=== PATIENT | male | born 1985 | race Caucasian/White ===

== ENCOUNTER 2021-03-24 18:34 | Inpatient (IN) | payer OTHER ==
[2021-03-24 21:10] VITALS: BMI 21.7
[2021-03-24] MEDS ORDERED: MAGNESIUM HYDROX 2400MG/30ML ORAL SUSPENSION 30 ML CUP PO PRN (21:58)
[2021-03-24] MEDS ORDERED: MAGNESIUM CITRATE 300 ML BOTTLE PO PRN (21:58)
[2021-03-24] MEDS ORDERED: MENTHOL/PHENOL 1 EACH UD MM PRN (21:58)
[2021-03-24] MEDS ORDERED: BISMUTH SUBSALICYLATE 524 MG/30 ML PO PRN (21:58)
[2021-03-24] MEDS ORDERED: ACETAMINOPHEN 325 MG TABLET (FP) PO PRN ×2 (21:58)
[2021-03-24] MEDS ORDERED: MAG HYDROX/AL HYDROX/SIMETH 30 ML UNIT-DOSE CUP PO PRN (21:58)
[2021-03-24] MEDS ORDERED: methaDONE HCL 10 MG TABLET (FOR DETOX USE ONLY) PO ONE (23:00)
[2021-03-25] MEDS: MELATONIN 5 MG TABLETS PO SCH ×2 (03:51→22:08)
[2021-03-25] MEDS: THIAMINE HCL 100 MG TABLET (FP) PO SCH ×2 (03:51→22:08)
[2021-03-25] MEDS ORDERED: methaDONE HCL 10 MG TABLET (FOR DETOX USE ONLY) ONE (09:07)
[2021-03-25] MEDS ORDERED: ONDANSETRON *ODT* 4 MG TABLET SL ONE (09:32)
[2021-03-25] MEDS ORDERED: METHOCARBAMOL 750 MG TAB PO ONE (10:00)
[2021-03-25 10:29] LABS: HEMATOCRIT 39.1 % (35.4-49); HEMOGLOBIN 13.6 GM/dL (11.7-16.9); MCH 31.8 pg (25.7-33.7); MCHC 34.8 g/dl (32.0-35.9); MEAN CELL VOLUME 91.2 fl (80-96); MEAN PLT VOLUME 7.2 fl (7.5-11.1); PLATELET COUNT 291 10^3/uL (134-434); RBC 4.29 M/mm3 (4.00-5.60); RDW 13.6 % (11.9-15.9); WHITE BLOOD COUNT 7.7 K/mm3 (4.0-10.0)
[2021-03-25 10:37] LABS: ALBUMIN 3.7 g/dl (3.4-5.0); BLOOD UREA NITROGEN 7.3 mg/dL (7-18); CALCIUM 8.5 mg/dL (8.5-10.1)
[2021-03-25] MEDS: PRENATAL VITAMINS W/ FOLIC ACID TABLET (FP) PO SCH (10:37)
[2021-03-25 10:40] LABS: CREATININE 0.5 mg/dL (0.55-1.3)
[2021-03-25 10:42] LABS: BILIRUBIN,TOTAL 0.6 mg/dL (0.2-1); TOT PROT 6.3 g/dl (6.4-8.2)
[2021-03-25 11:26] LABS: HIV INTERPRETATION NEGATIVE (NEGATIVE)
[2021-03-25] MEDS ORDERED: NICOTINE POLACRILEX 4 MG GUM BUC PRN (11:57)
[2021-03-25] MEDS: NICOTINE 21 MG/24 HOURS TOPICAL PATCH TD SCH (12:15)
[2021-03-25] MEDS: ONDANSETRON *ODT* 4 MG TABLET SL PRN (17:11)
[2021-03-25] MEDS: hydrOXYzine PAMOATE 25 MG CAPSULE (FP) PO PRN ×2 (17:11→22:10)
[2021-03-25] MEDS: cloNIDine HCL 0.1 MG TABLET PO PRN (17:11)
[2021-03-25] MEDS: METHOCARBAMOL 500 MG TABLET PO PRN (22:09)
[2021-03-26] MEDS: cloNIDine HCL 0.1 MG TABLET PO PRN ×2 (06:44→12:35)
[2021-03-26] MEDS: METHOCARBAMOL 500 MG TABLET PO PRN ×3 (06:44→18:59)
[2021-03-26] MEDS: IBUPROFEN 400 MG TABLET (FP) PO PRN ×2 (06:44→22:24)
[2021-03-26] MEDS: ONDANSETRON *ODT* 4 MG TABLET SL PRN ×2 (06:48→23:08)
[2021-03-26] MEDS ORDERED: methaDONE HCL 10 MG TABLET (FOR DETOX USE ONLY) PO ONE (10:00)
[2021-03-26] MEDS: PRENATAL VITAMINS W/ FOLIC ACID TABLET (FP) PO SCH (10:27)
[2021-03-26] MEDS: NICOTINE 21 MG/24 HOURS TOPICAL PATCH TD SCH (10:28)
[2021-03-26] MEDS: hydrOXYzine PAMOATE 25 MG CAPSULE (FP) PO PRN ×2 (12:35→18:59)
[2021-03-26] MEDS: THIAMINE HCL 100 MG TABLET (FP) PO SCH (22:23)
[2021-03-26] MEDS: MELATONIN 5 MG TABLETS PO SCH (22:23)
[2021-03-27] MEDS: hydrOXYzine PAMOATE 25 MG CAPSULE (FP) PO PRN ×4 (01:31→22:49)
[2021-03-27] MEDS: METHOCARBAMOL 500 MG TABLET PO PRN ×2 (01:31→17:36)
[2021-03-27] MEDS: ONDANSETRON *ODT* 4 MG TABLET SL PRN ×2 (05:57→15:23)
[2021-03-27] MEDS ORDERED: TRIMETHOBENZAMIDE HCL 200MG/2ML INJ IM ONE ×2 (09:07→20:23)
[2021-03-27] MEDS ORDERED: methaDONE HCL 10 MG TABLET (FOR DETOX USE ONLY) ONE (09:21)
[2021-03-27] MEDS: PRENATAL VITAMINS W/ FOLIC ACID TABLET (FP) PO SCH (09:59)
[2021-03-27] MEDS: NICOTINE 21 MG/24 HOURS TOPICAL PATCH TD SCH (09:59)
[2021-03-27] MEDS ORDERED: SODIUM CHLORIDE 1,000 ML IV SCH ×2 (15:45→15:50)
[2021-03-27 21:59] VITALS: BP 119/77; PULSE 73; TEMP 97.5
[2021-03-27] MEDS: THIAMINE HCL 100 MG TABLET (FP) PO SCH (22:49)
[2021-03-27] MEDS: MELATONIN 5 MG TABLETS PO SCH (22:49)
[2021-03-28] MEDS ORDERED: methaDONE HCL 10 MG TABLET (FOR DETOX USE ONLY) PO ONE (10:00)
== END 2021-03-28 07:00 | disposition left against medical advice (07) | DRG 770 ==
LOC: YASAS 18:34 → Y3N 22:13
PROVIDERS: ADMIT Allergy & Immunology; ATTEND Allergy & Immunology
PROC: HZ2ZZZZ Detoxification Services for Substance Abuse Treatment (ICD-10-PCS; principal; 2021-03-24)
DX: F11.23 Opioid dependence with withdrawal (principal); F12.20 Cannabis dependence, uncomplicated; F13.10 Sedative, hypnotic or anxiolytic abuse, uncomplicated; F17.210 Nicotine dependence, cigarettes, uncomplicated; F19.24 Other psychoactive substance dependence with psychoactive substance-induced mood disorder; R11.2 Nausea with vomiting, unspecified; Z62.810 Personal history of physical and sexual abuse in childhood
CPT/HCPCS: 36415; 80053; 85027; 86780; 87389; C9803; J0735; Q0162; U0003; U0005

== ENCOUNTER 2021-03-28 00:09 | Emergency (ER) | payer OTHER ==
[2021-03-28 00:22] VITALS: TEMP 99.1; BMI 24.2
[2021-03-28] MEDS ORDERED: methaDONE HCL 10 MG TABLET (FOR DETOX USE ONLY) PO ONE (02:59)
[2021-03-28] MEDS ORDERED: methaDONE HCL 10 MG TABLET ONE (03:02)
[2021-03-28 05:47] VITALS: BP 120/81; PULSE 76
== END 2021-03-28 05:56 | disposition home or self-care (01) ==
LOC: JER 00:09
DX: F10.239 Alcohol dependence with withdrawal, unspecified (principal)
CPT/HCPCS: 99283-25